=== PATIENT | male | born 1945 | race Caucasian/White ===

== ENCOUNTER 2021-06-05 21:30 | Inpatient (IN) | payer OTHER ==
[~2021-06-05] VITALS: Ht 185.4 cm; Wt 97.5 kg
--- NOTE | ~2021-06-05 | EMS ---
[address] [address] EMS Patient Care Report Name: WILLI LOPEZ Room #: 353-P ADM IN M.R.#: [id number] Admission: 06/06/21 Attend Phys: Osmin Fox MD Discharge: Date of : 49 Report #: [id number] THIS REPORT FOR: //name// Report Transmitted: 06/08/2021 09:31 EMS Care Summary [place], [place]/[facility] Incident [id number] @ 06/05/2021 20:12 Incident Location [address] [place] [address] [address] 224 Patient WILLI LOPEZ Male, 75 Years 1945 Patient Address [address] [place] [id number] Patient History Hypertension (HTN),Hyperlipidemia,Gastro-Esophageal Reflux Disease (GERD),Pneumonia,Depression,Dysphagia,Type 2 Diabetes,Myocardial Infarction (MT),Novel Coronavirus (COVID-19), Patient Allergies No known allergies, Patient Medications ASA, Donepezil, Lovastatin, Lisinopril, Other, Nitroglycerin, Omeprazole, Sertraline, Chief Complaint patient is aphasic, depressed and wont talk Disposition Transported No Lights/[place] Dispatch Reason Transfer/Interfacility/Palliative Care Transported To [facility] Narrative EMS requested for the transport of patient from [facility] to [address] [address] EMS Patient Care Report Name: WILLI LOPEZ Room #: 353-P ADM IN ..#: [id number] Admission: 06/06/21 Attend Phys: Osmin Fox MD Discharge: Date of : 49 Report #: [id number] Geriatric Psych. Patient was treated at [facility] for hypertension and Covid 19 pneumonia. Per RN patient was aphasic during stay and refusing to speak or communicate with staff and limited with family. Patient being transferred to [facility] for psychiatric services not available at [facility]. Patient found seated in chair on arrival. patient assisted to standing with lift belt, chair moved and cot slid in behind him. Patient seated on cot, covered with warm blankets and secured with straps. Patient taken to the Geriatric Psych unit at [facility] and moved to bed. Report given to receiving staff and patient care transferred. Initial Vitals @20:54P: 62,R: 16,BP: 134/67,Pain: 0/10,GCS: 12,SpO2: 98,Revised Trauma: 11, Assessments @20:32MENTAL:Person Oriented,Unresponsive,SKIN:HEENT:Head/Face: No Abnormalities,LUNG SOUNDS:ABDOMEN:PELVIS//GI:EXTREMITIES:PULSE:NEURO: Impression Behavioral/psychiatric episode Procedures @20:32ALS AssessmentResponse: UnchangedSucceeded Timeline 15:05,Call Received 15:05,Dispatch Notified 20:12,Dispatched 20:13,En Route 20:22,On Scene 20:32,At Patient 20:32,ALS Assessment,Response: UnchangedSucceeded, 20:42,Depart Scene 20:54,BP: 134/67 M,PULSE: 62,RR: 16 R,SPO2: 98 Ox,ETCO2: ,BG: ,PAIN: 0,GCS: 12, 21:20,At Destination 21:37,Call Closed Disclaimer v1.1 Copyright 2020 [place] This EMS Care Summary contains data elements from the applicable legal record (which may be displayed differently). It is designed to provide pertinent information for the following purposes: continuity of care, clinical quality, and state data reporting. The complete legal record is available to ED staff and administrators of the receiving hospital in [employer] Patient Tracker. All data is provided "as is."
[2021-06-05 21:31] VITALS: BP 122/60
[2021-06-06] MEDS ORDERED: BAYER CHEWABLE81 MG PO (01:03)
[2021-06-06] MEDS ORDERED: ARICEPT10 MG PO (01:03)
[2021-06-06] MEDS ORDERED: VIMPAT50 MG PO (01:04)
[2021-06-06] MEDS ORDERED: LOVASTATIN 20 M20 MG PO (01:04)
[2021-06-06] MEDS ORDERED: LISINOPRIL20 MG PO (01:04)
[2021-06-06] MEDS ORDERED: OMEGA-31000 M2 PO (01:05)
[2021-06-06] MEDS ORDERED: NITROSTAT0.4 M1 SUBLING (01:05)
[2021-06-06] MEDS ORDERED: OMEPRAZOLE 20 M20 M1 PO (01:06)
[2021-06-06] MEDS ORDERED: SERTRALINE HCL25 M1 PO (01:06)
[2021-06-06] MEDS ORDERED: MULTI VITAMIN1 EACH PO (01:08)
[2021-06-06] MEDS ORDERED: ATENOLOL 50MG T50 M1 PO (01:10)
[2021-06-06] MEDS ORDERED: AUGMENTIN 875-1 EACH PO (01:11)
[2021-06-06] MEDS ORDERED: PROVIGIL 100 M100 MG PO (01:11)
[2021-06-06] MEDS ORDERED: PREDNISONE 20 M20 MG PO (01:11)
[2021-06-06 02:53] LABS: ABSOLUTE NEUTROPHILS 7.5 thou/uL (1.4-8.2); BASOPHILS 0.2 % (0.0-2.0); EOSINOPHILS 1.1 % (0.0-3.0); HEMOGLOBIN 12.5 gm/dL (14.0-18.0); LYMPHOCYTES 14.8 % (24.0-44.0); MCH 33.9 pg (26.0-34.0); MCHC 33.7 g/dL (28.0-37.0); MCV 100.6 fL (80.0-100.0); MONOCYTES 9.9 % (1.0-8.0); PLATELET COUNT 79 thou/uL (150-400); RBC 3.68 mil/uL (4.50-6.00); RDW 15.8 % (10.5-14.5); WBC 10.1 thou/uL (4.0-11.0)
[2021-06-06 03:02] LABS: CALCIUM 9.3 mg/dL (8.5-10.1); CREATININE 0.8 mg/dL (0.7-1.3); POTASSIUM 3.4 mmol/L (3.5-5.1)
[2021-06-06 03:09] LABS: ALBUMIN 2.2 g/dL (3.4-5.0); TOTAL BILIRUBIN 1.5 mg/dL (0.2-1.0); TOTAL PROTEIN 5.7 g/dL (6.4-8.2)
[2021-06-06 03:34] LABS: URINE BILIRUBIN 1+ (Negative); URINE BLOOD NEGATIVE (Negative); URINE CLARITY CLEAR; URINE COLOR YELLOW; URINE GLUCOSE-RANDOM* TRACE (Negative); URINE KETONES TRACE (Negative); URINE LEUKOCYTES-REFLEX NEGATIVE (Negative); URINE NITRITE-REFLEX NEGATIVE (Negative); URINE PROTEIN (DIPSTICK) NEGATIVE (Negative); URINE SPECIFIC GRAVITY 1.025 (1.005-1.035); URINE UROBILINOGEN >= 8.0 E.U./dl (0.2-1.0)
[2021-06-06 03:41] LABS: ICTOTEST (BILI CONFIRMATORY) Positive (Negative)
[2021-06-06 04:00] VITALS: BP 128/90
[2021-06-06 04:56] VITALS: BP 134/78
[2021-06-06] MEDS ORDERED: METFORMIN HCL500 M2 PO (06:37)
[2021-06-06 07:13] VITALS: BP 133/80
--- NOTE | 2021-06-06 07:18 | NUR ---
PT ADMITTED FROM ED TO 3W ROOM 353, ARRIVED TO FLOOR AT APPROXIMATELY 0430. PT REFERRED TO [facility] DUE TO REPORTS OF SUICIDAL IDEATIONS WHILE AT HOME PER [facility]. PT PREVIOUSLY TESTED POSITIVE FOR COVID-19 ON 05/11/21; PT WAS SWABBED FOR COVID PER FACILITY PROTOCOL FOR ENTRY TO BEHAVIORAL HEALTH UNIT, WITH POSITIVE RESULT. PT PLACED IN COVID ISOLATION. PT WITH FLAT AFFECT, VERY [place] BOTH EARS, WEARS HEARING AIDS. PT ALERT TO SELF AND SITUATION, BUT DOES NOT ANSWER QUESTIONS APPROPRIATELY. PT WITH DIMINISHED APPETITE, TO RECEIVE PPN SUPPLEMENT TO CONSISTENT CARB DIET. ADMISSION ASSESSMENTS AND MEDICATION RECONCILIATION COMPLETE. 1:1 SITTER PRESENT AT BEDSIDE DUE TO REPORTED SUICIDAL IDEATIONS.
--- NOTE | 2021-06-06 12:13 | NUR ---
SPOKE WITH KAREN RAPP WITH INFECTION CONTROL. PT ORIGINALLY TESTED POSITIVE FOR COVID-19 IN AND DOES NOT NEED TO BE IN ISOLATION THE PATIENT IS OUT OF THE WINDOW FOR ISOLATION. INFORMED DR. LIU.
--- NOTE | 2021-06-06 14:40 | NUR ---
PT IS ALERT TO SELF AND DATE. PT KNOWS HE IS IN A HOSPITAL BUT DOES NOT KNOW WHICH HOSPITAL OR WHY HE IS HERE. EXPLAINED TO PT WHY HE IS AT THE HOSPITAL. PT HAS FLAT AFFECT. DAUGHTER DILAN AT BEDSIDE WITH PT. DAUGHTER STATED SHE WILL BRING IN THE DPOA PAPERWORK. PT IS HARD OF HEARING AND HAS HEARING AIDS AT BEDSIDE. MEDS CRUSHED IN APPLESAUCE. PT HAS BEEN UP X1 ASSIST TO THE BEDSIDE COMMODE WITH GAIT BELT AND WALKER. SITTER PRESENT. BLE 2+ EDEMA. RED COCCYX. SPEECH EVALUATED PT. PT TO RESUME PREVIOUS DIET OF PUREE FOOD WITH NECTAR THICK LIQUIDS. NO COMPLAINTS OF PAIN OR DISCOMFORT AT THIS TIME. WILL CONTINUE TO MONITOR.
[2021-06-06 16:13] VITALS: BP 100/56
[2021-06-06 19:14] VITALS: BP 95/50
--- NOTE | 2021-06-07 03:57 | NUR ---
RECEIVED CARE OF THIS PATIENT AT 1900. PATIENT ALERT AND ORIENTED TO PERSON AND TIME ONLY. SLEPT IN CHAIR ALL NIGHT. NO ABNORMAL BEHAVIOR NOTED. VERY [place]. UP WITH ASSIST OF ONE. LAMAR 195, 3 UNITS LISPRO INSULIN GIVEN. IV WITH PPN INFUSING. HAS 1:1 SITTER. SLEPT MOST OF NIGHT. DENIES PAIN.
[2021-06-07 03:58] LABS: CALCIUM 9.2 mg/dL (8.5-10.1); CREATININE 0.7 mg/dL (0.7-1.3); POTASSIUM 3.7 mmol/L (3.5-5.1)
[2021-06-07 04:36] LABS: HEMATOCRIT 35.2 % (42.0-52.0); MCH 34.6 pg (26.0-34.0); MCV 101.9 fL (80.0-100.0); RBC 3.45 mil/uL (4.50-6.00); RDW 16.2 % (10.5-14.5); WBC 8.7 thou/uL (4.0-11.0)
[2021-06-07 07:51] VITALS: BP 114/64
[2021-06-07 09:54] LABS: % SATURATION 59 % (20-39); FOLIC ACID 5.9 ng/mL (8.6-58.9); IRON 79 ug/dL (65-175); TIBC 133 ug/dL (250-450)
[2021-06-07 16:12] VITALS: BP 112/53
[2021-06-07 19:25] VITALS: BP 104/49
--- NOTE | 2021-06-07 20:02 | NUR ---
RN ASSUMED PT'S CARE AT 0700-1900PM, PT KNOWS HIS NAME AND HER DAY, BUT PT IS CONFUSED AT TIME, PT IS OFF SITTER TODAY, WE KEEP COLOSED TO MONITOR PT, PT'S VS ARE STABLE, PT NEEDS HELP MEALS AND ADL, PT IS GOING TO HAVE EGD TOMORROW , PT'S DAUGHTERS HAVE SIGNED CONSENT .
[2021-06-08 04:54] VITALS: BP 120/56
[2021-06-08 07:00] VITALS: BP 110/62
[2021-06-08 08:53] LABS: HEMATOCRIT 36.8 % (42.0-52.0); HEMOGLOBIN 12.4 gm/dL (14.0-18.0); MCH 34.3 pg (26.0-34.0); MCHC 33.7 g/dL (28.0-37.0); MCV 101.5 fL (80.0-100.0); RBC 3.63 mil/uL (4.50-6.00); RDW 16.7 % (10.5-14.5); WBC 9.3 thou/uL (4.0-11.0)
[2021-06-08 10:05] VITALS: BP 115/65
--- NOTE | 2021-06-08 11:14 | NUR ---
Pt folate level 5.9, need repletiion, recommend start supplementation.
[2021-06-08 15:06] VITALS: BP 89/52
--- NOTE | 2021-06-08 17:41 | NUR ---
ASSUMED PATIENT CARE AT 0700. ALERT. TALK SOMETIMES. MAX ASSISTED UP. SLOWLY TOWARDS POC GOALS.
[2021-06-08 19:18] VITALS: BP 100/51
[2021-06-09 03:36] VITALS: BP 117/65
--- NOTE | 2021-06-09 09:02 | HC ---
[facility] [place] [address] [place] [address] CONSULTATION Name: WILLI LOPEZ Room #: 353-P ADM IN M.R.#: [id number] Admission: 06/06/21 Attend Phys: Osmin Fox MD Discharge: Date of : 49 Report #: [id number] THIS REPORT FOR: cc: Chantal Polk MD, Erin E. MD Kerstein, Andrew H. DO ~ DATE OF SERVICE: 06/07/2021 INPATIENT CL PSYCHIATRY CONSULTATION PRIMARY ATTENDING: For now at least is Tay Vang MD CONSULTING PSYCHIATRIST: Ministerio Gayle DO REASON FOR CONSULTATION: The patient initially had been destined for the [facility], but his COVID-19 PCR was positive in the Emergency Room here at [facility], thus excluding him from admission, so he was sent from one of the [facility] facilities, Critical access hospital. HISTORY OF PRESENT ILLNESS: A 75-year-old male, x 4 years, who has had a recent difficult course. He initially developed COVID-19 virus and syndrome on 05/11/2021, was hospitalized for 6 days or so in the [facility] system and was discharged to senior care facility at [facility] for several days. He had a fall and was taken back to [facility] and then his most recent admission to [facility] that I have is 05/20/2021 to 05/28/2021, by the course that his daughter, Bere, relayed to me. In any event, the patient was highly functioning living with his daughter, Rocky, prior to the onslaught of COVID and its complications on 05/11/2021. When I saw the patient in his room on , he has been taken off isolation precautions there, had an IV hooked up. He is not feeling well. The patient had a [employer] [place] in hand and I could not get him to really attend to me and started reading the [employer] [place], so I made challenging comment to him that, "Since you are reading Life, you must like reading about other people's lives and not discussing your own" and he acknowledged that this was true. In any event, I played it cool, I did not rip the magazine out of his hand or anything like that and I set out to talk to his daughter. Allegedly, his daughter, Rocky, is the DPOA. There was no DPOA paperwork in the chart. I guess they are zoroastrian Bahai Roman Catholic because the thing that happened is Bere, who is visiting from [place], was driving to [place] and Rocky was driving to [place] too and I got a hold of Bere and she talked to me while he was driving and then when they arrived at [place], Rocky, came to her car, so it worked out and I was able to get some additional history. Donna [place] had not gotten any surgical history. They told me he had a vasectomy a year and a half ago and they believe it was due to prostate problems, not to fertility issues. Also Donna had not gotten any social history. [facility] [address] [place] [address] CONSULTATION Name: WILLI LOPEZ Room #: 353-P ADM IN M.R.#: [id number] Admission: 06/06/21 Attend Phys: Osmin Fox MD Discharge: Date of : 49 Report #: [id number] He was born in [place]. He had a lot of difficulty with his father growing up. He had a Master's in [place] and studies. He is fluent in [place]. 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 He was twice. The girls were little when he got and his next marriage was for 30 some years and that magnitude and it was a good marriage and the 4 years ago of Parkinson's disease. FAMILY HISTORY: Major depression, not bipolar depression. He has several first-degree family members that have had that. There is no dementia in the family. None of those family members affected have required electroconvulsive therapy. In reviewing Critical access hospital paperwork, it looks like Dr. Ruiz attended him there. He also used to see Dr. [place] and I suspect they are both hospitalist. Diagnosis list is quite verbose. They diagnosed him with acute encephalopathy and they have dysphagia, dehydration, pancytopenia, decreased responsiveness, meningitis, transaminitis, skin lesion of the scalp, abnormal urinalysis, lactic acidosis, pneumonia due to COVID-19, vitamin D deficiency, type 2 diabetes mellitus, esophageal reflux, essential hypertension, mixed hyperlipidemia, history of myocardial infarction. The diabetes is resolved. I am questioning a few of these diagnoses such as meningitis and lactic acidosis. They note in their hospital course that he was admitted 05/20/2021 with a history significant for hypertension, coronary artery disease, prior history of GERD, presented with worsening weakness, confusion and swallowing. They said he had episodes of unresponsiveness, severe fatigue and issues with swallowing, prompting Neurology. He had an MRI with no evidence of ischemic stroke or mass. EKG with no seizure activity. He had a lumbar puncture. There was an increase in red blood cells in addition to white blood cell count. His cultures have been negative. His virals CSF PCRs were negative. ID was consulted who felt like this was most likely secondary to traumatic tap, but says he does have an autoimmune panel pending. His myasthenia gravis acetylcholine receptor antibody was within normal limits. 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 He had 7 days of antibiotic therapy and steroids for a total of 2 weeks. Dysphagia, he had repeated videos follows with evidence of moderate oropharyngeal dysphagia, pharyngeal stasis likely related to patient's mentation. He had an EGD in 2019 with no evidence of anatomic abnormalities. COVID pneumonia tested positive on 05/11/2021, not hypoxic, no targeted therapy. Had unusual composition of discharge medications, Augmentin 875/125 two tabs daily for upper respiratory infection, donepezil 10 mg oral daily. The daughter, Bere, tells me that donepezil as a new medication. He has not been diagnosed with Alzheimer's recently. I find it a little strange that Neurology at [facility] would put him on a cognitive enhancer in the setting of an acute [address] [address] CONSULTATION Name: WILLI LOPEZ Room #: 353-P [facility] IN M.R.#: [id number] Admission: 06/06/21 Attend Phys: Osmin Fox MD Discharge: Date of : 49 Report #: [id number] COVID encephalopathy course, but stranger things have happened. This next med equally I am not sure why it was prescribed, Provigil, which is modafinil 100 mg oral daily. Prednisone makes sense with the COVID. Sertraline 25 mg oral daily okay. He is also on aspirin 81 mg oral daily, atenolol 50 mg oral daily, lisinopril 40 mg oral daily, ____ 20 mg oral daily, metformin 500 mg ER tablet daily, nitroglycerin p.r.n. and omeprazole daily. Some other tit bits from the [facility] document. On 05/26/2021, he had renea aspiration, which was not visualized. There was some oropharyngeal dysphagia. MRI of the head without contrast on 05/23/2021, there was mild to moderate atrophy without hemorrhagic or infarction or enhancing abnormality seen. Ultrasound of abdomen on 05/22/2021, somewhat shrunken portion and echogenic liver, says possibly represented a component of cirrhosis without associated intrahepatic biliary ductal dilation or ascites, subjective hypertrophy of the caudate lobe, nonspecific heterogeneous hypoechoic 1.4 cm oval structure at the posterior aspect of the pancreatic head. This may represent a lymph node; however, a posterior pancreatic head mass cannot be excluded, correlate clinically. Pancreatic protocol CT may be considered for further evaluation. Changes of cholecystectomy with probable postoperative ectasia of the common bile duct. I find this interesting because the daughter told me he only had a vasectomy. I got another discharge medication list with his aspirin, donepezil, , lisinopril, lovastatin. So, I think it is fair to say this is a complicated case. VITAL SIGNS: At [facility], temperature 35.7, pulse 66, respirations 18, BP 114/64, O2 sat 94%. GENERAL: Wearing glasses in bed. Head of bed propped upright. Reading [employer] [place] despite my efforts to get him to put it down and attend to me. MENTAL STATUS EXAMINATION: Well-developed, ill-appearing male apparently stated age. Attention fair. Concentration limited. Speech is slow, soft. Thought process: Linear, limited. Thought content focused on [employer] [place]. The patient did not respond to questioning about suicidality, homicidality, auditory, visual, or tactile hallucinations, but he did not appear to be responding to external stimuli. For over more than 24 hours, there has been no evidence of self-harm behavior. Memory not formally tested. Insight limited. Judgment impaired. Fund of knowledge really limited. FORMULATION: A 75-year-old male with history of some depression, that duarte sequela from the COVID pneumonia, post-COVID encephalopathy, sent to [facility] for Geriatric Psychiatry admission, but that has been halted due to a positive PCR, now he is bedded in the [facility] Med[facility]Surg Unit. 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 I discussed at length with the daughter, Bere, we were still in the range where post-COVID encephalopathy could be doing its ugly business. I discussed with her that discussion amongst my colleagues within this institution and others, there has been nothing specific to hasten clearance other than good nutrition, care and obviously keeping your the patient alive and well. The daughter will be here tomorrow afternoon. Hopefully, with her present at bedside, we can encourage some interaction out of this patient. The patient will stay medically admitted for now. Donepezil 10 mg at bedtime. Ambien I have discontinued due to poor appetite. Sertraline 25 mg daily, probably bump that up to 50 mg. He is on prednisone daily. If it is essential for his lungs, his COVID recovery fine. If not, my recommendation and that will be tapered or discontinued as soon as possible. Steroids have a lot of negative side effects. Start him on lisinopril 20 mg daily, famotidine 20 mg b.i.d., atenolol 50 mg daily, Augmentin. He is on insulin sliding scale. He is on 50 mg of Vimpat daily. I am not sure that is really necessary given what I saw from [facility], but I think continuing for now is okay. So, main change is discontinuing the donepezil and we will increase the sertraline. Time spent on this case is over 90 minutes, greater than 50% of time was spent in review of records and coordination of care. STRENGTHS: Insured, supportive family. WEAKNESSES: Age, morbidities, COVID sequela. <ELECTRONICALLY SIGNED> By: Ministerio Gayle DO 06/09/21 0902 1058 [id number] Ministerio Gayle DO /nt
[2021-06-09 12:23] LABS: HEMATOCRIT 39.4 % (42.0-52.0); HEMOGLOBIN 13.1 gm/dL (14.0-18.0); MCH 34.1 pg (26.0-34.0); MCHC 33.3 g/dL (28.0-37.0); MCV 102.4 fL (80.0-100.0); RBC 3.85 mil/uL (4.50-6.00); RDW 17.6 % (10.5-14.5); WBC 10.7 thou/uL (4.0-11.0)
[2021-06-09 12:44] LABS: ALBUMIN 2.2 g/dL (3.4-5.0); CALCIUM 9.5 mg/dL (8.5-10.1); CREATININE 0.8 mg/dL (0.7-1.3); POTASSIUM 4.6 mmol/L (3.5-5.1); TOTAL BILIRUBIN 1.6 mg/dL (0.2-1.0); TOTAL PROTEIN 5.8 g/dL (6.4-8.2)
--- NOTE | 2021-06-09 13:20 | NUR ---
PT VERBALIZING NEEDS AND MAKING EYE CONTACT WITH NURSING STAFF THIS SHIFT. PT APPEARS TO PARTICIPATE BETTER WITH YES/NO QUESTIONS. FAMILY AT BEDSIDE, ASKING APPROPRIATE QUESTIONS. DR OLSON IN CONFERENCE WITH FAMILY AT THIS TIME.
--- NOTE | 2021-06-09 15:08 | PATH ---
[facility] [address] [place] [address] PATHOLOGY RPT PROCEDURE Name: JOHNWILLI Powers Room #: 353-P ADM IN M.R.#: [id number] Admission: 06/06/21 Date of : 49 Discharge: Report #: [id number] Path Case #: [id number] [facility] Accession Number: [id number] . 01 Material submitted: . gastrointestinal site - GASTRIC BX . 01 Clinical history: . DYSPHAGIA DUODENAL ULCERS R/O H. PYLORI . 02 Diagnosis: Gastric mucosa, rule out H. pylori, endoscopic biopsy: - Mild chronic gastritis. - Negative for intestinal metaplasia or atrophy. - Negative for Helicobacter pylori (properly controlled immunohistochemical stain performed). (IUV:press operator carbon blocks; 06/09/2021) MBR 06/09/2021 1227 Local . 02 Electronically signed: . Aarti Robertson MD, Pathologist NPI- [id number] . 01 Gross description: . The specimen is received in formalin, labeled "Willi Roach, gastric BX-R/O H. pylori" and consists of 2 palacio irregular tissue aggregating 0.6 x 0.5 x 0.2 cm which are submitted in toto in A1.([place]; 06/08/2021) DKA/DKA 06/08/2021 1649 Local . 02 Pathologist provided ICD-10: K29.50 . 02 CPT . 521067, L33759 Specimen Comment: A courtesy copy of this report has been sent to [phone], [phone] Specimen Comment: [id number] Specimen Comment: Report sent to / DR HYATT Performed at: [address] [id number] MD Panda Earl MD Phone: [phone] Performed at: [address] [id number] [address] [address] PATHOLOGY RPT PROCEDURE Name: WILLI ROACH Room #: 353-P ADM IN M.R.#: [id number] Admission: 06/06/21 Date of : 49 Discharge: Report #: [id number] Path Case #: [id number] MD Aarti Robertson MD Phone: [phone]
[2021-06-09 15:40] VITALS: BP 103/48
[2021-06-09 19:55] VITALS: BP 120/53
[2021-06-10 04:34] VITALS: BP 115/57
--- NOTE | 2021-06-10 05:35 | NUR ---
PT IS SLOWLY PROGRESSING TOWARD GOALS. PT WAS MORE COMMUNICATIVE TONIGHT THAN PREVIOUS 2 NIGHTS. STILL WITH FLAT AFFECT. PT RESPONDS SLOWLY TO QUESTIONS, RN ALLOWED TIME FOR PT TO RESPOND. PT IS SPEAKING IN COMPLETE SENTENCES THIS SHIFT WHEREAS PREVIOUS NIGHTS HIS RESPONSES WERE MOSTLY 1-2 WORDS. ATE 100% OF A CARTON OF YOGURT WELL APPROX 120ML OF THICKENED APPLE JUICE.
[2021-06-10 07:15] VITALS: BP 107/60
[2021-06-10 16:19] VITALS: BP 90/45
[2021-06-10 18:59] VITALS: BP 133/50
[2021-06-11 04:17] VITALS: BP 104/50
--- NOTE | 2021-06-11 06:14 | NUR ---
PT IN CATATONIC STATE. PT WILL MUMBLE SOME WORDS. PT CAN VOID VIA URINAL IF YOU ASK HIM. VSS OVERNIGHT. AT AM MED PASS PT STATED HE WANTED THE REST OF THE YOGURT USED FOR HIS MEDICATION! HOURLY ROUNDING.
--- NOTE | 2021-06-11 07:22 | HC ---
[facility] [place] [address] CONSULTATION Name: WILLI LOPEZ Room #: 353-P [facility] IN M.R.#: [id number] Admission: 06/06/21 Attend Phys: Osmin Fox MD Discharge: Date of : 49 Report #: [id number] THIS REPORT FOR: cc: Chantal Polk MD, Erin E. MD McKittrick, Richard James MD ~ cc: Chris Hilliard MD, VENECIA Gayle, DATE OF SERVICE: 06/10/2021 PHYSICIAN REQUESTING: Osmin Fox. REASON FOR CONSULTATION: Thrombocytopenia. HISTORY OF PRESENT ILLNESS: The patient is a 75-year-old male transferred here to the Geriatric Psychiatric Unit or Behavioral Disorders Unit and was noted to have platelets of approximately 79,000. In talking with his daughter, when he discharged from the outside facility on the , they were approximately 69,000. We also have records from outside that show on a discharge on 05/28, they were 149,000 and the discharge note on 05/20, 185,000. Before that, the patient's daughter has no record. The patient is sleeping and medicated and cannot contribute to the history. They report no new arm or leg swelling, no bleeding difficulties. Note that the patient does have a recent finding of a duodenal ulcer and grade A esophagitis. REVIEW OF SYSTEMS: Per the chart: Stomach, there are no unusual lymph nodes, unusual fevers, chills or sweats or significant weight change other than because of mental condition. PAST MEDICAL HISTORY: Reports the behavioral disorder, possible history of dementia. Also, depression, coronary artery disease, myocardial infarction, diabetes type 2, GERD, hypertension, hyperlipidemia, the recent duodenal ulcer with grade A esophagitis. 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 FAMILY HISTORY: Noncontributory. MEDICATIONS: At this time in the hospital currently include prednisone 30 daily, lorazepam 1 mg b.i.d., vitamin D 50,000 units weekly, pantoprazole 20 b.i.d., lorazepam p.r.n., folic acid daily, sertraline 50 daily, flu vaccine, lisinopril 20 daily, atenolol 50 daily, Augmentin b.i.d., sliding scale insulin. Other electrolyte changes. PHYSICAL EXAMINATION: [address] [address] CONSULTATION Name: WILLI LOPEZ Room #: 353-P [facility] IN [facility]#: [id number] Admission: 06/06/21 Attend Phys: Osmin Fox MD Discharge: Date of : 49 Report #: [id number] GENERAL: The patient appears his stated age. VITAL SIGNS: His height is 6 feet 1 inch, 185.4 cm, weight is 215 pounds or 97.5 kilograms. Recent blood pressure 107/60, respirations 18, pulse 63, temperature 97.8. NEUROLOGIC: Cannot assess. HEENT: The face is symmetrical. He is not wakeful, ____ from some of his medications. No enlarged lymph nodes. LUNGS: Seem clear without wheezing or rhonchi. Symmetric, unlabored. HEART: Regular rate. LYMPHATIC: No enlarged lymph nodes in the supraclavicular, cervical, or groin regions. ABDOMEN: Slightly obese. No organomegaly. Does not wince in pain. EXTREMITIES: Has trace edema. LABORATORY DATA: Notable for the hemoglobin of 13.1, white count of 10.7, platelets today 62,000. Earlier on, coags had been normal. Transaminases had been slightly elevated, AST 100, ALT 162. Iron panel appropriate. Folate had been low at 5.9, but the patient is on folic acid replacement. Note that MCV is 102.4. We will need to make sure retic count is ordered. ASSESSMENT AND PLAN: 1. Thrombocytopenia appears to be recent in nature, may be from Augmentin or other medications, which is difficult to sort across several hospitalizations. We will see what B12, folate, immature platelet fraction shows. We will also check ultrasound of extremities. Daughter says the patient is not a drinker. 2. History of COVID, not currently an issue. 3. Recent duodenal ulcer. Defer proton pump inhibitor management to others. 4. History of coronary artery disease and hypertension and myocardial infarction. Defer cardiac management to others. 5. History of diabetes. Defer glucose management to others. We will follow with you. <ELECTRONICALLY SIGNED> By: Terence García MD 06/11/21 0722 0910 1301 Terence García MD /nt
[2021-06-11 08:00] VITALS: BP 104/52
[2021-06-11 10:18] LABS: HEMATOCRIT 40.6 % (42.0-52.0); HEMOGLOBIN 13.7 gm/dL (14.0-18.0); MCH 34.5 pg (26.0-34.0); MCHC 33.7 g/dL (28.0-37.0); MCV 102.4 fL (80.0-100.0); RBC 3.97 mil/uL (4.50-6.00); RDW 18.4 % (10.5-14.5); WBC 9.3 thou/uL (4.0-11.0)
[2021-06-11 10:39] LABS: MAGNESIUM 2.1 mg/dL (1.8-2.4); POTASSIUM 4.4 mmol/L (3.5-5.1)
--- NOTE | 2021-06-11 12:11 | NUR ---
ANTWAN sent email to Rita Zhong at [facility] to request a medicaid screening.
--- NOTE | 2021-06-11 15:39 | NUR ---
Referrals sent tot he following [facility] Debora and Rosi Guy
[2021-06-11 16:43] VITALS: BP 103/46
[2021-06-11 18:50] LABS: % SATURATION 35 % (20-39); IRON 66 ug/dL (65-175); TIBC 190 ug/dL (250-450)
[2021-06-11 18:55] LABS: INR 1.38; PROTIME 14.8 Seconds (10.5-12.1)
[2021-06-11 19:35] VITALS: BP 101/61
--- NOTE | 2021-06-11 19:40 | NUR ---
RN ASSUMED PT'S CARE AT 0700-1900PM, PT CAN TALKING SOMETIMES, BUT PT IS CLOSED HIS EYES AT MOST OF TIME, PT 'S VS ARE STABLE, PT NEEDS HELP MEALS AND ADL, PT IS RESTING AT MOST OF DAY SHIFT,
--- NOTE | 2021-06-11 19:42 | NUR ---
RN FINDS NEW WOUND AT COCCXY , NEW ORDER CLAY MATTRESS, RN HAS REPORTED TO NEXT SHIFT TO CONTIUNE CHANGE POSITION Q2HR, KEEP SKIN CLEAN AND DRY, APPLY PROTECTED CREAM .
--- NOTE | 2021-06-11 23:20 | NUR ---
ASSESSED AT START OF SHIFT. EVENING MEDS GIVEN CRUSHED IN THICK LIQUID. BSG CHECKED NO COVERAGE DUE TO POOR APPITITE. PT INCONTINENT. REPOSITIONED FOR COMFORT. FALL PREC IN PLACE. WILL CONT TO MONITOR.
[2021-06-12 04:20] VITALS: BP 103/50
[2021-06-12 07:29] VITALS: BP 106/58
--- NOTE | 2021-06-12 08:46 | NUR ---
WOUND CONSULT; THE PICTURE OF THE WOUND WAS VIEWED AND IT CLEARLY DEMONSTRATED FRICTION SHEARING INJURY. THERE ARE CLEAR FRAYED EDGES. UPON ASSESSMENT OF THE WOUND THIS WAS VERIFIED. NOW THE TISSUES ARE MUCH MORE SUSEPTIBLE TO PRESSURE FORCES. THE WOUND BED IS RED WITH NO DRAINAGE SEEN. THE PATIENT DID NOT RESPOND TO QUESTIONS ONLY STARRING W/ NO EYE CONTACT. RECOMMENDATIONS; -Q2H TURNING AT A MINIMUM -ADD A LOW AIR LOSS BED PUMP -APPLY ZGUARD BID -HOB ABOVE 30 DEGREES ONLY FOR MEALS. -GOOD MOISURE MANAGEMENT DISCUSSED WITH RN AND DRAINAGE ENGINEER.
[2021-06-12 09:08] LABS: HEMOGLOBIN 13.7 g/dL (13.0-17.7)
[2021-06-12 10:40] LABS: HEMATOCRIT 38.9 % (42.0-52.0); HEMOGLOBIN 13.1 gm/dL (14.0-18.0); MCH 34.4 pg (26.0-34.0); MCHC 33.6 g/dL (28.0-37.0); MCV 102.4 fL (80.0-100.0); RBC 3.8 mil/uL (4.50-6.00); WBC 7.9 thou/uL (4.0-11.0)
[2021-06-12 11:12] LABS: ALBUMIN 1.2 g/dL (3.4-5.0); CALCIUM 10.2 mg/dL (8.5-10.1); CREATININE 0.8 mg/dL (0.7-1.3); DIRECT BILIRUBIN 0.3 mg/dL (<0.1-0.2); MAGNESIUM 2.3 mg/dL (1.8-2.4); POTASSIUM 4.3 mmol/L (3.5-5.1); TOTAL BILIRUBIN 1.6 mg/dL (0.2-1.0); TOTAL PROTEIN 5.6 g/dL (6.4-8.2)
--- NOTE | 2021-06-12 16:57 | NUR ---
Pt was accepted by [facility] for SNF. The family was not able to afford LTC at the facility. [facility] was still willing to do SNF for the Pt. ANTWAN was able to speak with [facility]. They are able to accept the Pt after a SNF stay. ANTWAN also spoke with [facility]. They are willing to accept the Pt after a SNF stay. Pt was also accepted at [facility] ANTWAN did speak with Bere concerning this information. Bere was confused about the Pt's need for LTC and AL memory care. ANTWAN informed the Pt was be appropriate for Al memory care after SNF. ANTWAN provided education on AL memory care. Bere stated she would like to see the decision from [facility]. ANTWAN will check in with the family on Tuesday concerning the matter
[2021-06-12 17:06] LABS: IgG 1199 mg/dL (603-1613)
--- NOTE | 2021-06-12 18:47 | NUR ---
ASSUMED CARE OF PT THIS AFTERNOON. PT WAS A TRANSFER FROM [facility]. PT ALERT TO SLEF BUT HAS BEEN NONE VERBAL. PT HAS TOLERATED MEDS AND MEALS WHEN BEING FEED. PT TURNED @2 HOURS THIS SHIFT. PT DAUGHTERS AT BEDSIDE TODAY. PT NOT PROGRESSING TOWARDS POC GOALS.
[2021-06-12 21:06] VITALS: BP 110/56
[2021-06-13 03:51] LABS: HEMATOCRIT 37.5 % (42.0-52.0); HEMOGLOBIN 12.7 gm/dL (14.0-18.0); MCH 34.7 pg (26.0-34.0); MCV 102.2 fL (80.0-100.0); RBC 3.67 mil/uL (4.50-6.00); RDW 18.5 % (10.5-14.5)
[2021-06-13 04:07] LABS: HAV IgM AB (ANTI-HAV IgM) Negative (Negative); HEPATITIS B SURFACE AG Negative (Negative); HEPATITIS C VIRUS AB <0.1 (0.0-0.9)
[2021-06-13 05:07] LABS: ALBUMIN 2.1 g/dL (3.4-5.0); CALCIUM 9.8 mg/dL (8.5-10.1); CREATININE 0.9 mg/dL (0.7-1.3); MAGNESIUM 2.3 mg/dL (1.8-2.4); POTASSIUM 4.6 mmol/L (3.5-5.1); TOTAL BILIRUBIN 1.3 mg/dL (0.2-1.0); TOTAL PROTEIN 5.4 g/dL (6.4-8.2)
--- NOTE | 2021-06-13 07:10 | NUR ---
ASSUMED PT CARE APPROX 0400, NO REPORT GIVEN. UPON ASSUMPTION OF CARE, PT SLEEPING WITHOUT INTERRUPTION OR OBSERVATION OF PAIN OR SOB. PT INCONTINENT OF BOWEL AND BLADDER, PT DEPENDENT FOR ALL CARES. PT ENCOURAGED TO NOTIFY STAFF FOR ALL NEEDS, CALL LIGHT WITHIN REACH, BED ALARM ON, BED LOCKED IN LOWEST POSITION, FREQUENT MONITORING WILL CONTINUE.
[2021-06-13 07:50] VITALS: BP 118/66
--- NOTE | 2021-06-13 13:59 | NUR ---
ASSUMED PT CARE THIS AM. PT IS AWAKE. PT HAS IV SITE ON RAC SALINE LOCKED. PT TOLERATED DIET AND MEDICATION WELL. PT IS ACCUCHECK ACHS. PT IS ON ROOM AIR. PLACED CONDOM CATH THIS AM. DID WOUND CARE ON COCCYX WITH NS AND ZGUARD. PT IS TURN Q2H. PT DAUGHTER AT THE BEDSIDE. PT ON THE BED, BED ON THE LOWEST POSITION, SIDE RAILS UP, CALL LIGHT WITHIN REACH. WILL CONTINUE TO MONITOR PT. FOLLOW POC.
[2021-06-13 16:06] LABS: ANA INTERPRETATION Positive (Negative)
[2021-06-13 16:08] VITALS: BP 111/61
[2021-06-13 20:50] VITALS: BP 104/59
[2021-06-14 02:39] LABS: ALBUMIN 2.1 g/dL (3.4-5.0); CALCIUM 9.5 mg/dL (8.5-10.1); CREATININE 0.8 mg/dL (0.7-1.3); POTASSIUM 4.5 mmol/L (3.5-5.1); TOTAL BILIRUBIN 1.2 mg/dL (0.2-1.0); TOTAL PROTEIN 5.3 g/dL (6.4-8.2)
[2021-06-14 08:28] VITALS: BP 92/51
--- NOTE | 2021-06-14 11:05 | NUR ---
ASSUMED PT CARE THIS AM. PT IS ALERT & ORIENTED X3 BUT SLOW TO RESPOND. PT IS BEDREST AND TURN Q2H. PT IS TOTAL CARE AND FEEDER. PT HAS IV SITE ON RAC SALINE LINE. PT IS ACCUCHECK ACHS. PT HAS EXTERNAL CONDOM CATH IN PLACE. DID WOUND CARE ON BUTTOCK WITH NS AND ZGUARD. PT TOLERATED DIET AND MEDICATION WELL. PT DAUGHTER WAS AT THE BEDSIDE. WILL CONTINUE TO MONITOR PT. FOLLOW POC.
[2021-06-14 17:14] VITALS: BP 103/61
[2021-06-14 20:30] VITALS: BP 104/59
--- NOTE | 2021-06-15 03:44 | NUR ---
PT IS A/O TO PERSON AND PLACE. HE IS ON BEDREST. PLEASANT AND COOPERATIVE. SLOW TO RESPOND TO QUESTIONS. VSS. AFEBRILE. HS BS ELEVATED. INSULIN GIVEN. HS SNACK PROVIDED. MEDICATIONS GIVEN DIRECTED. FALL PRECAUTIONS IN PLACE, CALL LIGHT IS WITHIN REACH.
[2021-06-15 05:05] VITALS: BP 107/65
[2021-06-15 05:20] LABS: HEMATOCRIT 37.6 % (42.0-52.0); HEMOGLOBIN 12.7 gm/dL (14.0-18.0); MCH 34.7 pg (26.0-34.0); MCHC 33.7 g/dL (28.0-37.0); MCV 102.9 fL (80.0-100.0); RBC 3.65 mil/uL (4.50-6.00); RDW 18.3 % (10.5-14.5); WBC 6.7 thou/uL (4.0-11.0)
[2021-06-15 05:35] LABS: ALBUMIN 2.1 g/dL (3.4-5.0); CALCIUM 9.5 mg/dL (8.5-10.1); CREATININE 0.8 mg/dL (0.7-1.3); MAGNESIUM 2.2 mg/dL (1.8-2.4); POTASSIUM 4.4 mmol/L (3.5-5.1); TOTAL BILIRUBIN 1.5 mg/dL (0.2-1.0); TOTAL PROTEIN 5.4 g/dL (6.4-8.2)
[2021-06-15 07:40] VITALS: BP 100/52
[2021-06-15 08:22] VITALS: BP 100/52
--- NOTE | 2021-06-15 11:09 | NUR ---
WOUND CARE FOLLOW UP; BILATERAL BUTTOCKS REGION IS STABLE TODAY. THERE IS NO OBVIOUS S/S OF INFECTION. THE CURRENT WOUND ORDERS OF [facility] REMAINS APPROPRIATE. RECOMMENDSTIONS; CONTINUE CURRENT POC.
--- NOTE | 2021-06-15 11:41 | NUR ---
ANTWAN spoke with Delores at [facility], . They have recieved authorization for SNF from Pt's insurance. They are able to accept the Pt today. ANTWAN informed that the Pt waiting to have a liver biopsy and would not be discharged today. However the hospitalist stated Pt may be ready Tuesday. ANTWAN will follow up once discharge date is determined.
[2021-06-15] MEDS ORDERED: ELIQUIS5 MG PO (12:44)
[2021-06-15] MEDS ORDERED: FLOMAX0.4 MG PO (12:44)
[2021-06-15] MEDS ORDERED: LASIX 20 MG TAB20 MG PO (12:45)
[2021-06-15] MEDS ORDERED: ALDACTONE50 MG PO (12:45)
[2021-06-15] MEDS ORDERED: PROPRANOLOL 1010 MG PO (12:45)
[2021-06-15] MEDS ORDERED: PROTONIX 20 MG20 M1 PO (12:46)
--- NOTE | 2021-06-15 14:45 | NUR ---
ANTWAN was able to talk to Dr. Gayle and Dr. Obrien concerning the case. Dr. Gayle informed the Pt will discharge today. ANTWAN confirmed with Delores at [facility] and they are still able to accept today. [facility] will provide transportation the Pt between [id number]. ANTWAN did contact [facility] and info of this discharge
--- NOTE | 2021-06-15 16:23 | NUR ---
pt A & O to self. [facility] Report called to Leatha at [facility]. mepilex to dom. discharge paperwork given to van cdl driver of transport. pt wheeled in wheeled chair by transport.
== END 2021-06-15 16:27 | DRG 432 ==
LOC: ER 21:30 → EROBS 06-06 03:44 → 3W 06-06 04:00 → EROBS 06-06 04:20 → 3W 06-06 05:02 → EROBS 06-06 05:02 → 3W 06-06 05:15 → 4S 06-12 11:42
PROVIDERS: Anesthesiology; Emergency Medicine; Hospitalist; Internal Medicine; Internal Medicine Hematology & Oncology; Nurse Practitioner; Nurse Practitioner Family; ADMIT Hospitalist; ATTEND Hospitalist
PROC: 0DB68ZX Excision of Stomach, Via Natural or Artificial Opening Endoscopic, Diagnostic (ICD-10-PCS; principal; 2021-06-08)
DX: K74.60 Unspecified cirrhosis of liver (principal); E43 Unspecified severe protein-calorie malnutrition; U07.1 COVID-19; R45.851 Suicidal ideations; G93.40 Encephalopathy, unspecified; I82.453 Acute embolism and thrombosis of peroneal vein, bilateral; R62.7 Adult failure to thrive; K20.80 Other esophagitis without bleeding; K26.9 Duodenal ulcer, unspecified as acute or chronic, without hemorrhage or perforation; F29 Unspecified psychosis not due to a substance or known physiological condition; D69.6 Thrombocytopenia, unspecified; E87.6 Hypokalemia; E11.9 Type 2 diabetes mellitus without complications; F32.A Depression, unspecified; R16.1 Splenomegaly, not elsewhere classified; R13.10 Dysphagia, unspecified; Z20.822 Contact with and (suspected) exposure to COVID-19; K21.9 Gastro-esophageal reflux disease without esophagitis; E78.5 Hyperlipidemia, unspecified; I10 Essential (primary) hypertension; I25.10 Atherosclerotic heart disease of native coronary artery without angina pectoris; R74.01 Elevation of levels of liver transaminase levels; E53.8 Deficiency of other specified B group vitamins; F06.1 Catatonic disorder due to known physiological condition; U09.9 Post COVID-19 condition, unspecified; E66.9 Obesity, unspecified; N40.0 Benign prostatic hyperplasia without lower urinary tract symptoms; K29.70 Gastritis, unspecified, without bleeding; I25.2 Old myocardial infarction; Z59.00 Homelessness unspecified; Z68.28 Body mass index [BMI] 28.0-28.9, adult
CPT/HCPCS: 10102; 10779; 62110; 62900; 70005